=== PATIENT | female | born 1945 | race Caucasian/White ===

== ENCOUNTER 2017-01-14 13:40 | Emergency (ER) | payer OTHER ==
[~2017-01-14] VITALS: Ht 157.5 cm; Wt 64.0 kg
[~2017-01-14 13:40] MED LIST: ADULT LOW STREN81 M2 PO; ASPIRIN81 M1 PO; CALCIUM PO; CALCIUM500 M4 PO; CARDIZEM CD,CA120 MG PO; CENTRUM SILVER1 EAC1 PO; CENTRUM SILVER1 EAC3 PO; FISH OIL 1,0001 EACH PO; FISH OIL 1,4001 EACH PO; LEVOTHYROXINE25 MCG PO; NAPROSYN375 MG PO; SYNTHROID PO; VITA PO
[2017-01-14 14:23] LABS: BASOPHIL COUNT 0.1 K/uL (0-0.1); EOSINOPHIL (%) 1.1 % (0-5); EOSINOPHIL COUNT 0.1 K/uL (0-0.3); IMMATURE GRANULOCYTE (%) 0.5 % (0.0-0.7); INSTRUMENT ABS NEUTROPHIL CT 3.8 K/uL; LYMPHOCYTE COUNT 1.1 K/uL (1.0-2.8); MCH 33.5 PG (29.0-34.0); MCV 98.4 FL (83-99); MONOCYTE (%) 10.4 % (3-12); MONOCYTE COUNT 0.6 K/uL (0-0.8); NEUTROPHIL (%) 67.1 % (45-76); NEUTROPHIL COUNT 3.8 K/uL (1.8-6.4); PLATELET COUNT 226 K/uL (156-360); RBC DIS.WIDTH-CV 12.9 % (11.8-14.6); RBC DIS.WIDTH-SD 46.5 % (39-53); RED BLOOD COUNT 4.27 M/uL (3.80-5.20); WHITE BLOOD COUNT 5.7 K/uL (4.1-10.2)
[2017-01-14 14:34] LABS: CHLORIDE 108 mEq/L (99-109); POTASSIUM 4.2 mEq/L (3.7-5.4)
[2017-01-14 14:35] LABS: MAGNESIUM 2.1 mg/dL (1.3-2.7); SODIUM 141 mEq/L (136-147)
[2017-01-14 14:37] LABS: GLUCOSE 110 mg/dL (70-99)
[2017-01-14 14:38] LABS: ANION GAP 10 MEQ/L (2-14)
[2017-01-14 14:39] LABS: TOTAL BILIRUBIN 0.5 mg/dL (0.0-1.0)
[2017-01-14 14:40] LABS: ALKALINE PHOSPHATASE 91 IU/L (3-129)
[2017-01-14 14:41] LABS: GFR ESTIMATE (CALCULATED) > 59 mL/min/
[2017-01-14 14:42] LABS: TROP-I INTERPRETATION NEGATIVE; TROPONIN-I 0.02 ng/mL (0.0-0.30); UREA NITROGEN (BUN) 19 mg/dL (9-23)
[2017-01-14 17:39] LABS: TROP-I INTERPRETATION NEGATIVE; TROPONIN-I 0.03 ng/mL (0.0-0.30)
[2017-01-14 18:11] VITALS: BP 147/83
== END 2017-01-14 18:13 | disposition home or self-care (01) ==
LOC: EME 13:40
PROVIDERS: Emergency Medicine
DX: R00.2 Palpitations (principal); R42 Dizziness and giddiness; R07.89 Other chest pain; R06.02 Shortness of breath; R19.7 Diarrhea, unspecified; E03.9 Hypothyroidism, unspecified; Z79.82 Long term (current) use of aspirin; Z87.891 Personal history of nicotine dependence
CPT/HCPCS: 71010; 80053; 83735; 84443; 84484; 85025; 93005; 99281; 99285